=== PATIENT | male | born 1990 | race Hispanic/Latino ===

== ENCOUNTER 2019-02-03 04:00 | Emergency (ER) | payer SELFPAY ==
[2019-02-03 04:12] VITALS: RESP 16
--- NOTE | 2019-02-03 04:29 | C.PDOC ---
History Of Present Illness 28 year old male presents to the ED c/o FB sensation to his left eye associated with irritation and redness that started after he woke up from sleep. Patient denies trauma, injury, fall, headache, visual changes, eye discharge, fever, chills, previous history of FB in the eye. Time Seen by Provider: 02/03/19 04:22 Chief Complaint (Nursing): Eye Problem History Per: Patient History/Exam Limitations: no limitations Onset/Duration Of Symptoms: Hrs Current Symptoms Are (Timing): Still Present Associated Symptoms: FB Sensation Recent travel outside of the [place]: No Additional History Per: Patient Past Medical History Reviewed: Historical Data, Nursing Documentation, Vital Signs Vital Signs: Last Vital Signs Temp 97.6 F 02/03/19 04:07 Pulse 72 02/03/19 04:07 Resp 16 02/03/19 04:07 BP 167/101 H 02/03/19 04:07 Pulse Ox 99 02/03/19 04:07 - Medical History PMH: No Chronic Diseases Surgical History: No Surg Hx Family History: States: Unknown Family Hx - Social History Hx Alcohol Use: No Hx Substance Use: No - Immunization History Hx Tetanus Toxoid Vaccination: No Hx Influenza Vaccination: No Hx Pneumococcal Vaccination: No Review Of Systems Constitutional: Negative for: Fever, Chills Eyes: Positive for: Conjunctivae Inflammation, Redness. Negative for: Vision C hange Respiratory: Negative for: Cough, Shortness of Breath Gastrointestinal: Negative for: Nausea, Vomiting, Abdominal Pain Skin: Negative for: Rash Neurological: Negative for: Weakness, Numbness, Headache Physical Exam - Physical Exam Appears: Non-toxic, No Acute Distress Skin: Normal Color, Warm, Dry Head: Atraumatic, Normacephalic, No Swelling Eye(s): bilateral: PERRL (visual acuity 20/20), EOMI, left: Other (ciliary injection. No corneal abrasion, no crusting, no stye no FB visualized) Oral Mucosa: Moist Neck: Normal ROM, Supple Extremity: Normal ROM Neurological/Psych: Oriented x3, Normal Speech, Normal Cognition Gait: Steady ED Course And Treatment O2 Sat by Pulse Oximetry: 99 (ON RA) Pulse Ox Interpretation: Normal Progress Note: Patient was advised to follow up with PMD and rfp writer for further evaluation. Disposition Counseled Patient/Family Regarding: Diagnosis, Need For Followup, Rx Given - Disposition Referrals: David Chery MD [Staff Provider] - Disposition: HOME/ ROUTINE Disposition Time: 04:26 Condition: STABLE Additional Instructions: Apply drops to affected eye Follow up with eye doctor as needed Return to ER if worse Prescriptions: Tobramycin 0.3% [Tobrex 0.3% Opth Soln] 1 drop OS TID #1 bottle Instructions: Conjunctivitis ([place]) (DC) Forms: [employer] ([place]) - Clinical Impression Clinical Impression: Conjunctivitis - PA / DIRECTOR OF [employer] / Resident Statement MD/DO has reviewed & agrees with the documentation as recorded. - Scribe Statement The provider has reviewed the documentation as recorded by the Scribe Remigio Pappas All medical record entries made by the Scribe were at my direction and personally dictated by me. I have reviewed the chart and agree that the record accurately reflects my personal performance of the history, physical exam, medical decision making, and the department course for this patient. I have also personally directed, reviewed, and agree with the discharge instructions and disposition.
[2019-02-03] MEDS ORDERED: Tetracaine 0.5% Ophth (OR ONLY) ONE (04:30)
[2019-02-03] MEDS ORDERED: Fluorescein 1 mg Ophthalmic Strip ONE (04:32)
[2019-02-03 04:47] VITALS: BP 132/72; PULSE 61; TEMP 97.8
[2019-02-03 05:50] VITALS: O2SAT 99
== END 2019-02-03 04:48 | disposition home or self-care (01) ==
LOC: C.ER 04:00
DX: H10.9 Unspecified conjunctivitis (principal)